=== PATIENT | male | born 1940 | race Caucasian/White ===

== ENCOUNTER 2021-09-26 10:31 | Inpatient (IN) ==
[2021-09-26] MEDS ORDERED: cefTRIAXone 1,000 MG in SODIUM CHLORIDE 0.9% 100 ML IV STA (11:29)
[2021-09-26] MEDS ORDERED: AZITHROMYCIN INJ 500 MG in SODIUM CHLORIDE 0.9% 250 ML IV STA (11:30)
[2021-09-26 12:00] LABS: Albumin 3.4 G/DL (3.4-5.0); Bilirubin,Total 0.5 MG/DL (0.20-1.00); Calcium 8.8 MG/DL (8.5-10.1); Osmolality,Calculated 285.4 MOS/KG (273-304); Total Protein 6.4 G/DL (6.4-8.2)
[2021-09-26 12:03] LABS: Basophils % 0.2 % (0.0-0.8); Eosinophils % 0.7 % (0.00-10.9); Hematocrit 23.4 VOL% (42.0-52.0); Immature Granulocytes % 0.9 %; Immature Granulocytes Absolute 0.04 #; Lymphocytes # 0.6 10*3/uL (1.4-4.0); Lymphocytes % 14.1 % (21.2-54.2); Mean Corpuscular HGB Conc 26.5 GM/DL (32-36); Mean Corpuscular Volume 76.5 FL (87-102); Mean Platelet Volume 10.9 FL (9.6-12.0); Monocytes % 12.5 % (1.7-12.7); NRBC # 0.08 10*3/uL; Neutrophils % 71.6 % (38.7-73.9); Platelet Count 273 T/CUMM (130-400); Red Blood Count 3.06 MC/CUMM (3.8-5.5); Red Cell Distribution Width 18.9 % (9.3-17.3); White Blood Count 4.4 T/CUMM (4-12)
[2021-09-26 12:07] LABS: Hemoglobin 6.2 GM/DL (14.0-18.0)
[2021-09-26 13:58] LABS: Lymphocytes 17 % (20-55); Microcytosis 2+; Ovalocytes Few; Reactive Lymphocytes Few; Schistocytes Slight; Segmented Neutrophils 75 % (50-85); Total Cells Counted 100
[2021-09-26 13:59] LABS: Hypochromia 1+; Platelet Estimate Adequate; Target Cells Slight
[2021-09-26] MEDS ORDERED: GLUCAGON 1 MG VIAL IM PRN (14:51)
[2021-09-26] MEDS ORDERED: SODIUM CHLORIDE 0.9% 1,000 ML IV PRN (14:51)
[2021-09-26] MEDS ORDERED: ACETAMINOPHEN 325 MG TABLET PO PRN (14:51)
[2021-09-26] MEDS ORDERED: ONDANSETRON 4 MG/2 ML VIAL IV PRN (14:51)
[2021-09-26] MEDS ORDERED: LACTATED RINGERS 1,000 ML IV SCH (15:00)
[2021-09-26] MEDS ORDERED: DEXTROSE 10% 250 ML BAG IV PRN (15:08)
[2021-09-26 15:40] LABS: Thyroid Stimulating Hormone 1.66 uIU/ml (0.358-3.74)
[2021-09-26 16:06] VITALS: BP 161/107
[2021-09-26] MEDS ORDERED: GABAPENTIN 300 MG CAPSULE PO SCH (21:00)
[2021-09-26] MEDS ORDERED: PANTOPRAZOLE 40 MG VIAL IV SCH (21:00)
[2021-09-26] MEDS ORDERED: DOCUSATE SODIUM 100 MG CAPSULE PO SCH (21:00)
[2021-09-27] MEDS ORDERED: amLODIPine 5 MG TABLET PO SCH (09:00)
[2021-09-27] MEDS ORDERED: PANTOPRAZOLE 40 MG TABLET PO SCH (09:00)
[2021-09-27] MEDS ORDERED: ASPIRIN EC 81 MG TABLET PO SCH (09:00)
[2021-09-27] MEDS ORDERED: METOPROLOL SUCCINATE XL 50 MG TABLET PO SCH (09:00)
[2021-09-27] MEDS ORDERED: ROSUVASTATIN 10 MG TABLET PO SCH (14:55)
== END 2021-09-26 16:07 | disposition left against medical advice (07) | DRG 812 ==
LOC: N.ED 10:31 → N.EDINP 14:10
PROVIDERS: ADMIT Internal Medicine; ATTEND Internal Medicine

== ENCOUNTER 2021-09-28 11:37 | Inpatient (IN) ==
[2021-09-28] MEDS ORDERED: SODIUM CHLORIDE 0.9% 1,000 ML IV PRN ×2 (14:50→23:05)
[2021-09-28] MEDS ORDERED: ONDANSETRON 4 MG/2 ML VIAL IV PRN (16:04)
[2021-09-28] MEDS ORDERED: GLUCAGON 1 MG VIAL IM PRN (16:04)
[2021-09-28] MEDS ORDERED: DEXTROSE 10% 250 ML BAG IV PRN (16:10)
[2021-09-28 16:23] LABS: INR 1.2; PT Patient Result 12.9 SECS (10.5-12.0)
[2021-09-28 16:40] LABS: % Iron Saturation 4.5 % (18-50); Basophils % 0.4 % (0.0-0.8); Eosinophils % 0.4 % (0.00-10.9); Immature Granulocytes % 0.6 %; Immature Granulocytes Absolute 0.05 #; Lymphocytes # 1.6 10*3/uL (1.4-4.0); Mean Corpuscular HGB Conc 27.1 GM/DL (32-36); Mean Corpuscular Volume 74.1 FL (87-102); Mean Platelet Volume 10.2 FL (9.6-12.0); Monocytes % 10.2 % (1.7-12.7); Neutrophils % 69.4 % (38.7-73.9); Platelet Count 336 T/CUMM (130-400); Red Blood Count 3.24 MC/CUMM (3.8-5.5); Red Cell Distribution Width 19.3 % (9.3-17.3); White Blood Count 8.3 T/CUMM (4-12)
[2021-09-28 16:45] LABS: Hemoglobin 6.5 GM/DL (14.0-18.0)
[2021-09-28 17:18] LABS: Albumin 3.7 G/DL (3.4-5.0); Bilirubin,Total 1.1 MG/DL (0.20-1.00); Calcium 9.5 MG/DL (8.5-10.1); Osmolality,Calculated 280.5 MOS/KG (273-304); Potassium 4.5 MMOL/L (3.5-5.1); Total Protein 7.2 G/DL (6.4-8.2)
[2021-09-28 17:47] LABS: Anisocytosis 2+; Hypochromia 1+; Macrocytosis 1+; Microcytosis 2+
[2021-09-28 17:48] LABS: Elliptocytes Few; Platelet Estimate Normal; Poikilocytosis Few; Polychromasia 1+
[2021-09-28 18:04] LABS: Sedimentation Rate-Westergren 47 MM/HR (0-20)
[2021-09-28 21:08] LABS: Folate 11.83 NG/ML (5.38-24.0); Vitamin B12 324 PG/ML (211-911)
[2021-09-28] MEDS: INSULIN LISPRO 100 UNIT/ML SUBCUT SCH (21:19)
[2021-09-28] MEDS: ASPIRIN CHEW 81 MG TABLET PO SCH (21:19)
[2021-09-28] MEDS: PANTOPRAZOLE 40 MG VIAL IV SCH (21:19)
[2021-09-28] MEDS: LACTATED RINGERS 1,000 ML IV SCH (22:00)
[2021-09-29] MEDS: INSULIN LISPRO 100 UNIT/ML SUBCUT SCH ×5 (03:21→21:26)
[2021-09-29 05:22] LABS: Calcium 9.6 MG/DL (8.5-10.1); Osmolality,Calculated 281.4 MOS/KG (273-304); Potassium 4.7 MMOL/L (3.5-5.1)
[2021-09-29 05:57] LABS: Basophils % 0.3 % (0.0-0.8); Eosinophils % 0.3 % (0.00-10.9); Hematocrit 32.2 VOL% (42.0-52.0); Hemoglobin 9.5 GM/DL (14.0-18.0); Immature Granulocytes % 0.4 %; Immature Granulocytes Absolute 0.04 #; Lymphocytes # 1.2 10*3/uL (1.4-4.0); Mean Corpuscular HGB Conc 29.5 GM/DL (32-36); Mean Corpuscular Volume 78.5 FL (87-102); Mean Platelet Volume 10.5 FL (9.6-12.0); Monocytes % 12.1 % (1.7-12.7); Neutrophils % 73.9 % (38.7-73.9); Platelet Count 296 T/CUMM (130-400); Red Cell Distribution Width 20.1 % (9.3-17.3); White Blood Count 9.5 T/CUMM (4-12)
[2021-09-29] MEDS: LACTATED RINGERS 1,000 ML IV SCH ×2 (07:01→21:24)
[2021-09-29 07:47] LABS: Hypochromia 1+; Lymphocytes 15 % (20-55); Microcytosis 1+; Segmented Neutrophils 73 % (50-85); Total Cells Counted 100
[2021-09-29 07:48] LABS: Ovalocytes Few; Platelet Estimate Normal
[2021-09-29] MEDS: amLODIPine 5 MG TABLET PO SCH (09:22)
[2021-09-29] MEDS: METOPROLOL SUCCINATE XL 50 MG TABLET PO SCH (09:22)
[2021-09-29] MEDS: ASPIRIN CHEW 81 MG TABLET PO SCH (09:22)
[2021-09-29 09:28] LABS: Hemoglobin A1 (Alkaline) 98.5 % (96.5-98.5); Hemoglobin A2 (Alkaline) 1.5 % (1.5-3.5)
[2021-09-29] MEDS: PANTOPRAZOLE 40 MG VIAL IV SCH ×2 (10:11→21:24)
[2021-09-29] MEDS ORDERED: FERRIC GLUCONATE COMPLEX 125 MG in SODIUM CHLORIDE 0.9% 100 ML IV ONE (14:00)
[2021-09-29] MEDS ORDERED: FERRIC GLUCONATE COMPLEX 125 MG in SODIUM CHLORIDE 0.9% 100 ML IV PRN (14:17)
[2021-09-30 05:07] LABS: Hemoglobin 8.8 GM/DL (14.0-18.0)
[2021-09-30 05:21] LABS: Osmolality,Calculated 282.3 MOS/KG (273-304); Potassium 4.3 MMOL/L (3.5-5.1)
[2021-09-30 06:33] LABS: Basophils % 0.4 % (0.0-0.8); Eosinophils # 0.1 10*3/uL (0.0-0.87); Eosinophils % 1.3 % (0.00-10.9); Hematocrit 30.6 VOL% (42.0-52.0); Hemoglobin 8.9 GM/DL (14.0-18.0); Immature Granulocytes % 0.4 %; Immature Granulocytes Absolute 0.03 #; Lymphocytes # 1.4 10*3/uL (1.4-4.0); Lymphocytes % 17.8 % (21.2-54.2); Mean Corpuscular HGB Conc 29.1 GM/DL (32-36); Mean Corpuscular Volume 80.7 FL (87-102); Mean Platelet Volume 10.6 FL (9.6-12.0); Monocytes % 13.2 % (1.7-12.7); Neutrophils % 66.9 % (38.7-73.9); Platelet Count 244 T/CUMM (130-400); Red Blood Count 3.79 MC/CUMM (3.8-5.5); Red Cell Distribution Width 20.3 % (9.3-17.3); White Blood Count 7.6 T/CUMM (4-12)
[2021-09-30 08:12] VITALS: BP 170/71
[2021-09-30] MEDS: INSULIN LISPRO 100 UNIT/ML SUBCUT SCH ×2 (08:46→14:06)
[2021-09-30] MEDS: PANTOPRAZOLE 40 MG VIAL IV SCH (10:26)
[2021-09-30] MEDS: ASPIRIN CHEW 81 MG TABLET PO SCH (10:26)
[2021-09-30] MEDS: amLODIPine 5 MG TABLET PO SCH (10:26)
[2021-09-30] MEDS: METOPROLOL SUCCINATE XL 50 MG TABLET PO SCH (10:26)
[2021-09-30] MEDS ORDERED: FERRIC GLUCONATE COMPLEX 125 MG in SODIUM CHLORIDE 0.9% 100 ML IV SCH (11:00)
[2021-09-30] MEDS: LACTATED RINGERS 1,000 ML IV SCH (12:07)
[2021-09-30] MEDS ORDERED: FERROUS SULFATE 325 MG TABLET PO SCH (15:00)
[2021-10-01] MEDS ORDERED: ROSUVASTATIN 10 MG TABLET PO SCH (21:00)
== END 2021-09-30 14:19 | disposition home or self-care (01) | DRG 811 ==
LOC: SUATTDRO → N.ED 11:37 → SUATTDRO 16:48 → N.EDINP 16:48 → N.TELEN 19:47
PROVIDERS: ADMIT Internal Medicine; ATTEND Internal Medicine